=== PATIENT | female | born 1985 | race Caucasian/White ===

== ENCOUNTER 2017-04-07 19:00 | Emergency (ER) | payer OTHER ==
[2017-04-07] MEDS ORDERED: Ondansetron INJ* 2 MG/ML VIAL IV ONE (20:57)
--- NOTE | 2017-04-07 21:47 | ED ---
Miguel Angel Crow Claudia, scribed for Monroe Greco MD on 04/07/17 at 2107 . Complex/Multi-Sys Presentation - HPI Summary HPI Summary: 31 year old female presents to the ED with NVD. Pt states sudden onset of Sx Wednesday am (04/06/16). Pt states intermittent episodes of emesis which unable any PO tolerance over the past few days. Pt states that she tried eating some toast and bananas today but was unable to tolerate that as well. She states that she cooked with some Turmeric on Wednesday night and has never used it before and is unsure if that might have something to do with her Sx. Pt denies having any similar Sx in the past. She denies any alleviating or aggravating factors. Pt also denies that anyone i the household has been sick as well as any fever, chills. - History Of Current Complaint Chief Complaint: EDNauseaVomitDiarrh Time Seen by Provider: 04/07/17 21:02 Hx Obtained From: Patient, Family/[employer]inder Onset/Duration: Sudden Onset, Lasting Days - since Wednesday04/05/16, Still Present Timing: Intermittent, Lasting: Associated Signs And Symptoms: Positive: Nausea, Vomiting, Diarrhea. Negative: Fever - Allergies/Home Medications Allergies/Adverse Reactions: Allergies Allergy/AdvReac Type Severity Reaction Status Date / Time No Known Allergies Allergy Verified 04/07/17 19:30 PMH/Surg Hx/FS Hx/Imm Hx Previously Healthy: Yes Endocrine/Hematology History: Denies: Hx Diabetes Cardiovascular History: Denies: Hx Myocardial Infarction Infectious Disease History: Denies: Traveled Outside the [place] in Last 30 Days - Social History Occupation: Unemployed Lives: With Family Alcohol Use: None Hx Substance Use: No Substance Use Type: Reports: None Hx Tobacco Use: No Smoking Status (MU): Never Smoked Tobacco Review of Systems Constitutional: Negative Negative: Fever, Chills Eyes: Negative ENT: Negative Cardiovascular: Negative Respiratory: Negative Positive: Vomiting, Diarrhea, Nausea Genitourinary: Negative Musculoskeletal: Negative Skin: Negative Neurological: Negative Psychological: Normal All Other Systems Reviewed And Are Negative: Yes Physical Exam Triage Information Reviewed: Yes Vital Signs On Initial Exam: Initial Vitals Temp Pulse Resp BP Pulse Ox 98.7 F 89 16 110/77 97 04/07/17 19:27 04/07/17 19:27 04/07/17 19:27 04/07/17 19:27 04/07/17 19:27 Vital Signs Reviewed: Yes Appearance: Positive: Well-Appearing, No Pain Distress Skin: Positive: Warm Head/Face: Positive: Normal Head/Face Inspection Eyes: Positive: DARIANA ENT: Positive: Pharynx normal Neck: Positive: Supple Respiratory/Lung Sounds: Positive: Clear to Auscultation, Breath Sounds Present Cardiovascular: Positive: RRR Abdomen Description: Positive: Nontender, Soft Bowel Sounds: Positive: Present Musculoskeletal: Positive: Strength/ROM Intact Neurological: Positive: Alert, Oriented to Person Place, Time Psychiatric: Positive: Affect/Mood Appropriate Diagnostics - Vital Signs Vital Signs Temp Pulse Resp BP Pulse Ox 04/07/17 19:27 98.7 F 89 16 110/77 97 - Laboratory Result Diagrams: 04/07/17 21:30 04/07/17 21:30 Lab Statement: Any lab studies that have been ordered have been reviewed, and results considered in the medical decision making process. Re-Evaluation - Re-Evaluation First Eval Re-Evaluation Time: 00:24 - feels much better, tolerating po Change: Improved Complex Multi-Symp Course/Dx Course Of Treatment: MDM: AFTER ZOFRAN AND IV FLUIDS THE PT HAS IMPROVED AND IS READY TO BE D/C HOME WITH FOLLOW-UP WITH PCP NEEDED. - Diagnoses Provider Diagnoses: Gastroenteritis Discharge - Discharge Plan Condition: Improved Disposition: HOME Patient Education Materials: Gastroenteritis (ED) Referrals: Steph Womack MD [Primary Care Provider] - 2 Days (PLEASE FOLLOW-UP WITH YOUR PRIMARY CARE PROVIDER NEEDED. ) The documentation as recorded by the Miguel Angel fitch Claudia accurately reflects the service I personally performed and the decisions made by , Monroe Greco MD.
[2017-04-07 21:53] LABS: Hematocrit 41 % (35-47); Hemoglobin 13.5 g/dl (12.0-16.0); Mean Corpuscular HGB Conc 33 g/dl (31-36); Mean Corpuscular Hemoglobin 29 pg (27-31); Mean Corpuscular Volume 89 fL (80-97); Mean Platelet Volume 9 um3 (7.4-10.4); Red Blood Count 4.63 10^6/ul (4.0-5.4); Red Cell Distribution Width 13 % (10.5-15)
[2017-04-07] MEDS: NS 0.9% 1000 ML* 2,000 ML IV ONE ×2 (22:06→23:20)
[2017-04-07 22:11] LABS: ALT 18 U/L (7-52); AST 12 U/L (13-39); Albumin 4.8 g/dL (3.2-5.2); Alkaline Phosphatase 66 U/L (34-104); Anion Gap 9 mmol/L (2-11); BUN/Creatinine Ratio 32.9 (8-20); Blood Urea Nitrogen 24 mg/dL (6-24); C Reactive Protein 22.41 mg/L (< 5.00); CO2 Carbon Dioxide 24 mmol/L (22-32); Calcium 9.5 mg/dL (8.6-10.3); Chloride 103 mmol/L (101-111); EGFR African American 120.4 (>60); EGFR Non-African American 93.6 (>60); Globulin 2.8 g/dL (2-4); Glucose 98 mg/dL (70-100); Lipase 11 U/L (11.0-82.0); Potassium 3.5 mmol/L (3.5-5.0); Sodium 136 mmol/L (133-145); Total Protein 7.6 g/dL (6.4-8.9)
[2017-04-07 23:53] LABS: Urine Bacteria Absent (Absent); Urine Bilirubin Negative (Negative); Urine Glucose Negative (Negative); Urine Nitrite Negative (Negative)
[2017-04-08 01:08] VITALS: BP 99/62
== END 2017-04-08 01:00 | disposition home or self-care (01) ==
LOC: ED 19:00
DX: K52.9 Noninfective gastroenteritis and colitis, unspecified (principal); R11.2 Nausea with vomiting, unspecified; R19.7 Diarrhea, unspecified
CPT/HCPCS: 36415; 80053; 81003; 81015; 83605; 83690; 84702; 85025; 86140; 96374; 99284; J2405